=== PATIENT | female | born 1950 | race Caucasian/White ===

== ENCOUNTER 2021-07-07 00:04 | Emergency (ER) | payer MEDICAID ==
[~2021-07-07] VITALS: Ht 170.2 cm; Wt 90.9 kg
[2021-07-07] MEDS: LORazepam 1 MG TABLET PO ONE (01:12)
[2021-07-07] MEDS: HALOPERIDOL 5 MG TABLET PO ONE (01:51)
[2021-07-07 01:52] VITALS: BP 136/78
[2021-07-08] MEDS ORDERED: TRAZ-252 PO (02:36)
[2021-07-08] MEDS ORDERED: ATEN-73 PO (02:36)
[2021-07-08] MEDS ORDERED: QUET25TA PO ×2 (02:36→02:52)
[2021-07-08] MEDS ORDERED: ATEN-187 PO (02:50)
[2021-07-08] MEDS ORDERED: TRAZ-184 PO (02:51)
[2021-07-08] MEDS ORDERED: CEPH-558 PO (05:27)
== END 2021-07-07 02:34 | disposition home or self-care (01) ==
LOC: EMS 00:07
DX: F41.9 Anxiety disorder, unspecified (principal); R00.2 Palpitations; F32.9 Major depressive disorder, single episode, unspecified
CPT/HCPCS: 99283

== ENCOUNTER 2021-07-07 20:19 | Emergency (ER) | payer MEDICAID, OTHER ==
[~2021-07-07] VITALS: Ht 170.2 cm; Wt 90.9 kg
[2021-07-07 20:56] LABS: AMPHET/METH SCREEN,URINE NEGATIVE (NEGATIVE); BARBITURATE SCREEN, URINE NEGATIVE (NEGATIVE); BENZODIAZEPINES SCREEN,URINE NEGATIVE (NEGATIVE); CANNABINOID SCREEN,URINE NEGATIVE (NEGATIVE); COCAINE SCREEN,URINE NEGATIVE (NEGATIVE); METHADONE SCREEN, URINE NEGATIVE (NEGATIVE); OPIATE SCREEN,URINE NEGATIVE (NEGATIVE); PHENCYCLIDINE SCREEN,URINE NEGATIVE (NEGATIVE)
[2021-07-07 21:03] LABS: BASOPHILS % (AUTO) 0.8 % (0.0-2.0); EOSINOPHILS % (AUTO) 1.9 % (1.0-6.0); HEMATOCRIT 40.1 % (36-46); HEMOGLOBIN 13.6 g/dL (12.0-16.0); LYMPHOCYTES # (AUTO) 1.2 K/uL (1.0-4.8); LYMPHOCYTES % (AUTO) 19.8 % (22.0-44.0); MEAN CORPUSCULAR HEMOGLOBIN 29.5 pg (26.0-34.0); MEAN CORPUSCULAR VOLUME 87 fL (80-100); MONOCYTES # (AUTO) 0.6 K/uL (0.1-1.0); MONOCYTES % (AUTO) 10.2 % (2.0-9.0); NEUTROPHILS % (AUTO) 67.3 % (40.0-70.0); PLATELET COUNT (AUTO) 251 K/uL (150-450); RED BLOOD CELL COUNT(AUTO) 4.62 MIL/uL (4.00-5.20); RED CELL DISTRIBUTION WIDTH 13.7 % (11.5-14.5)
[2021-07-07 21:13] LABS: ANION GAP 12 mmol/L (8-16); CALCIUM, TOTAL 9.5 mg/dL (8.8-10.5); CARBON DIOXIDE 25 mmol/L (22-29); CHLORIDE 104 mmol/L (98-107); CREATININE 0.63 mg/dL (0.60-1.30); GLUCOSE,RANDOM 134 mg/dL (70-110); POTASSIUM 3.4 mmol/L (3.5-5.1); SODIUM SERUM 141 mmol/L (136-145); UREA NITROGEN, BLOOD 16 mg/dL (7-18)
[2021-07-07 21:14] LABS: GLOMERULAR FILTR. RATE CALC > 60 mL/min (>60)
[2021-07-07 21:19] LABS: ALANINE AMINOTRANSFERASE 53 U/L (12-78); ALBUMIN 3.9 g/dL (3.4-5.0); ALKALINE PHOSPHATASE 102 U/L (46-116); ASPARTATE AMINOTRANSFERASE 62 U/L (15-37); BILIRUBIN,TOTAL 0.6 mg/dL (0.1-1.0); TOTAL PROTEIN, SERUM 7.8 g/dL (6.4-8.2)
[2021-07-07 22:57] LABS: APPEARANCE,URINE TURBID (CLEAR); BILIRUBIN,URINE NEGATIVE (NEGATIVE); GLUCOSE, URINE (UA) 70-100 mg/dL (NEGATIVE); KETONES,URINE NEGATIVE (NEGATIVE); LEUKOCYTE ESTERASE ,URINE LARGE (NEGATIVE); NITRATE,URINE NEGATIVE (NEGATIVE); OCCULT BLOOD,URINE NEGATIVE (NEGATIVE); PH,URINE 5.5 (5.0-8.0); PROTEIN,URINE 30-70 mg/dL (NEGATIVE); SPECIFIC GRAVITIY, URINE 1.031 (1.003-1.030); UROBILINOGEN,URINE <=1.0 mg/dL (<=1.0)
[2021-07-07 23:02] LABS: AMORPHOUS SEDIMENT,UR Many /LPF (None Seen); BACTERIA,URINE Few /HPF (None Seen); RBC,URINE 0-2 /HPF (0-2); SQUAMOUS EPITHELIAL CELL,UR Rare /LPF (None Seen)
[2021-07-08] MEDS ORDERED: ATEN-73 PO (02:36)
[2021-07-08] MEDS ORDERED: QUET25TA PO ×2 (02:36→02:52)
[2021-07-08] MEDS ORDERED: TRAZ-252 PO (02:36)
[2021-07-08] MEDS ORDERED: ATEN-187 PO (02:50)
[2021-07-08] MEDS ORDERED: TRAZ-184 PO (02:51)
[2021-07-08] MEDS ORDERED: CEPH-558 PO (05:27)
[2021-07-08] MEDS ORDERED: CEPHALEXIN MONOHYDRATE 500 MG CAPSULE PO ONE (05:30)
[2021-07-08] MEDS ORDERED: QUEtiapine FUMARATE 100 MG TABLET PO ONE (07:30)
[2021-07-08 09:24] VITALS: BP 154/80
== END 2021-07-08 09:48 | disposition home or self-care (01) ==
LOC: EMS 20:26
DX: F32.9 Major depressive disorder, single episode, unspecified (principal); N39.0 Urinary tract infection, site not specified; F41.9 Anxiety disorder, unspecified; Z76.0 Encounter for issue of repeat prescription
CPT/HCPCS: 36415; 80053; 80307; 81001; 85025; 87086; 99285; G0480

== ENCOUNTER 2021-11-05 16:00 | Emergency (ER) | payer MEDICAID, OTHER ==
[~2021-11-05] VITALS: Ht 167.6 cm; Wt 78.6 kg
[~2021-11-05 16:00] MED LIST: ATEN-187 PO; ATEN-73 PO; CEPH-558 PO; QUET25TA PO; TRAZ-184 PO; TRAZ-252 PO
[2021-11-05 17:06] LABS: GLUCOMETER DEV NAME(LOC) ERT.5; GLUCOSE,POINT OF CARE 113 MG/DL (70-110)
[2021-11-05 19:01] LABS: BASOPHILS % (AUTO) 0.8 % (0.0-2.0); EOSINOPHILS % (AUTO) 0.6 % (1.0-6.0); HEMATOCRIT 42.4 % (36-46); HEMOGLOBIN 13.7 g/dL (12.0-16.0); LYMPHOCYTES # (AUTO) 1.3 K/uL (1.0-4.8); LYMPHOCYTES % (AUTO) 19.1 % (22.0-44.0); MEAN CORPUSCULAR HEMOGLOBIN 28.8 pg (26.0-34.0); MEAN CORPUSCULAR HGB CONC 32.4 G/dL (31.0-37.0); MEAN CORPUSCULAR VOLUME 89 fL (80-100); MONOCYTES # (AUTO) 0.5 K/uL (0.1-1.0); MONOCYTES % (AUTO) 7.7 % (2.0-9.0); NEUTROPHILS # (AUTO) 4.9 K/uL (1.8-7.7); NEUTROPHILS % (AUTO) 71.8 % (40.0-70.0); PLATELET COUNT (AUTO) 248 K/uL (150-450); RED BLOOD CELL COUNT(AUTO) 4.77 MIL/uL (4.00-5.20); RED CELL DISTRIBUTION WIDTH 14.2 % (11.5-14.5)
[2021-11-05 19:11] LABS: ANION GAP 11 mmol/L (8-16); CALCIUM, TOTAL 9.9 mg/dL (8.8-10.5); CARBON DIOXIDE 24 mmol/L (22-29); CHLORIDE 100 mmol/L (98-107); CREATININE 0.76 mg/dL (0.60-1.30); GLUCOSE,RANDOM 106 mg/dL (70-110); POTASSIUM 3.3 mmol/L (3.5-5.1); SODIUM SERUM 135 mmol/L (136-145); UREA NITROGEN, BLOOD 14 mg/dL (7-18)
[2021-11-05 19:12] LABS: GLOMERULAR FILTR. RATE CALC > 60 mL/min (>60)
[2021-11-05 19:17] LABS: ALANINE AMINOTRANSFERASE 25 U/L (12-78); ALBUMIN 4.7 g/dL (3.4-5.0); ALKALINE PHOSPHATASE 98 U/L (46-116); ASPARTATE AMINOTRANSFERASE 20 U/L (15-37); BILIRUBIN,TOTAL 0.7 mg/dL (0.1-1.0); LIPASE 73 U/L (73-393); TOTAL PROTEIN, SERUM 7.8 g/dL (6.4-8.2)
[2021-11-05] MEDS: SODIUM CHLORIDE 0.9% 1,000 ML IV ONE (21:00)
[2021-11-05] MEDS: ACETAMINOPHEN 500 MG TABLET PO ONE (21:01)
[2021-11-05] MEDS: ONDANSETRON HCL 4 MG/2 ML VIAL IVP ONE (21:01)
[2021-11-05] MEDS: DIPHENOXYLATE/ATROP 2.5-0.025 MG TABLET PO ONE (21:01)
[2021-11-05 22:00] VITALS: BP 135/74
[2021-11-05] MEDS: LORazepam 1 MG TABLET PO ONE (22:30)
[2021-11-05] MEDS ORDERED: ONDA-104 PO (22:31)
[2021-11-05] MEDS ORDERED: ACET-66 PO (22:31)
[2021-11-05] MEDS ORDERED: DIPH-654 PO (22:31)
== END 2021-11-06 01:03 | disposition home or self-care (01) ==
LOC: EMS 16:00
DX: K52.9 Noninfective gastroenteritis and colitis, unspecified (principal); F41.8 Other specified anxiety disorders; F32.9 Major depressive disorder, single episode, unspecified
CPT/HCPCS: 99285; 96374; 71045; 96361; 80053; 82962; 83690; 84484; 85025; 85379; 36415; 93005; J2405; J7030

== ENCOUNTER 2022-06-07 11:15 | Emergency (ER) | payer OTHER ==
[~2022-06-07] VITALS: Ht 170.2 cm; Wt 81.8 kg
[~2022-06-07 11:15] MED LIST changes: +ACET-66 PO; -ATEN-73 PO; -CEPH-558 PO; +DIPH-654 PO; +ONDA-104 PO; -TRAZ-252 PO
[2022-06-07] MEDS ORDERED: QUET50TA24 PO (11:22)
[2022-06-07] MEDS ORDERED: QUET200T30 PO (11:22)
[2022-06-07 12:20] LABS: BASOPHILS % (AUTO) 0.8 % (0.0-2.0); EOSINOPHILS % (AUTO) 0.4 % (1.0-6.0); HEMATOCRIT 43.8 % (36-46); HEMOGLOBIN 14.5 g/dL (12.0-16.0); LYMPHOCYTES # (AUTO) 0.9 K/uL (1.0-4.8); LYMPHOCYTES % (AUTO) 16.7 % (22.0-44.0); MEAN CORPUSCULAR HEMOGLOBIN 28.6 pg (26.0-34.0); MEAN CORPUSCULAR HGB CONC 33.2 G/dL (31.0-37.0); MEAN CORPUSCULAR VOLUME 86 fL (80-100); MONOCYTES # (AUTO) 0.3 K/uL (0.1-1.0); MONOCYTES % (AUTO) 5.9 % (2.0-9.0); NEUTROPHILS # (AUTO) 3.9 K/uL (1.8-7.7); NEUTROPHILS % (AUTO) 76.2 % (40.0-70.0); PLATELET COUNT (AUTO) 208 K/uL (150-450); RED BLOOD CELL COUNT(AUTO) 5.09 MIL/uL (4.00-5.20); RED CELL DISTRIBUTION WIDTH 13.9 % (11.5-14.5)
[2022-06-07 12:24] LABS: ANION GAP 10 mmol/L (8-16); CALCIUM, TOTAL 9.7 mg/dL (8.8-10.5); CARBON DIOXIDE 25 mmol/L (22-29); CHLORIDE 103 mmol/L (98-107); GLOMERULAR FILTR. RATE CALC > 60 mL/min (>60); GLUCOSE,RANDOM 123 mg/dL (70-110); POTASSIUM 3.7 mmol/L (3.5-5.1); SODIUM SERUM 138 mmol/L (136-145); UREA NITROGEN, BLOOD 12 mg/dL (7-18)
[2022-06-07 12:26] LABS: APPEARANCE,URINE CLEAR (CLEAR); BILIRUBIN,URINE NEGATIVE (NEGATIVE); GLUCOSE, URINE (UA) NEGATIVE (NEGATIVE); KETONES,URINE NEGATIVE (NEGATIVE); LEUKOCYTE ESTERASE ,URINE MODERATE (NEGATIVE); NITRATE,URINE NEGATIVE (NEGATIVE); OCCULT BLOOD,URINE NEGATIVE (NEGATIVE); PH,URINE 5.5 (5.0-8.0); PROTEIN,URINE TRACE mg/dL (NEGATIVE); UROBILINOGEN,URINE <=1.0 mg/dL (<=1.0)
[2022-06-07 12:32] LABS: ALANINE AMINOTRANSFERASE 32 U/L (12-78); ALBUMIN 4.2 g/dL (3.4-5.0); ALKALINE PHOSPHATASE 107 U/L (46-116); ASPARTATE AMINOTRANSFERASE 27 U/L (15-37); BILIRUBIN,TOTAL 0.6 mg/dL (0.1-1.0); TOTAL PROTEIN, SERUM 7.9 g/dL (6.4-8.2)
[2022-06-07 12:32] LABS: AMPHET/METH SCREEN,URINE NEGATIVE (NEGATIVE); BARBITURATE SCREEN, URINE NEGATIVE (NEGATIVE); BENZODIAZEPINES SCREEN,URINE NEGATIVE (NEGATIVE); CANNABINOID SCREEN,URINE NEGATIVE (NEGATIVE); COCAINE SCREEN,URINE NEGATIVE (NEGATIVE); METHADONE SCREEN, URINE NEGATIVE (NEGATIVE); OPIATE SCREEN,URINE NEGATIVE (NEGATIVE); PHENCYCLIDINE SCREEN,URINE NEGATIVE (NEGATIVE)
[2022-06-07 12:44] LABS: BACTERIA,URINE None Seen /HPF (None Seen); RBC,URINE None Seen /HPF (0-2); SQUAMOUS EPITHELIAL CELL,UR Few /LPF (None Seen)
[2022-06-07 12:47] LABS: COVID AG,FIA SOURCE NASAL SWAB
[2022-06-07] MEDS ORDERED: QUET50TA15 PO (13:04)
[2022-06-07] MEDS ORDERED: QUET200T5 PO (13:04)
[2022-06-07] MEDS ORDERED: QUET25TA PO (13:05)
[2022-06-07] MEDS ORDERED: CEFP200T12 PO (13:06)
[2022-06-07 13:10] VITALS: BP 146/96
== END 2022-06-07 14:00 | disposition home or self-care (01) ==
LOC: EMS 11:15
DX: F20.9 Schizophrenia, unspecified (principal); N39.0 Urinary tract infection, site not specified; F41.9 Anxiety disorder, unspecified; I10 Essential (primary) hypertension; F32.A Depression, unspecified; Z20.822 Contact with and (suspected) exposure to COVID-19
CPT/HCPCS: 99284; 87426; 80053; 85025; 36415; 87086; 87186; 81001; 80307 ×2; G0480

== ENCOUNTER 2023-04-04 10:11 | Inpatient (IN) | payer OTHER, MEDICAID ==
[~2023-04-04] VITALS: Ht 167.6 cm; Wt 85.4 kg
[~2023-04-04 10:11] MED LIST changes: -ACET-66 PO; +CEFP200T12 PO; +CEPH-558 PO; -DIPH-654 PO; +METO25 PO; +OLAN2.5T29 PO; -ONDA-104 PO; +PHEN-674 PO; +QUET100T34 PO; +QUET200T30 PO; +QUET200T5 PO; +QUET25TA36 PO; +QUET50TA24 PO; +TRAZ-252 PO
[2023-04-04 11:17] LABS: BASOPHILS % (AUTO) 0.7 % (0.0-2.0); EOSINOPHILS % (AUTO) 0.7 % (1.0-6.0); HEMOGLOBIN 15.6 g/dL (12.0-16.0); LYMPHOCYTES # (AUTO) 1.5 K/uL (1.0-4.8); LYMPHOCYTES % (AUTO) 19.3 % (22.0-44.0); MEAN CORPUSCULAR HEMOGLOBIN 29.6 pg (26.0-34.0); MEAN CORPUSCULAR VOLUME 87 fL (80-100); MONOCYTES # (AUTO) 0.7 K/uL (0.1-1.0); MONOCYTES % (AUTO) 8.4 % (2.0-9.0); NEUTROPHILS # (AUTO) 5.6 K/uL (1.8-7.7); NEUTROPHILS % (AUTO) 70.9 % (40.0-70.0); PLATELET COUNT (AUTO) 212 K/uL (150-450); RED BLOOD CELL COUNT(AUTO) 5.27 MIL/uL (4.00-5.20); RED CELL DISTRIBUTION WIDTH 14.3 % (11.5-14.5); WHITE BLOOD COUNT (AUTO) 7.9 K/uL (4.5-11.0)
[2023-04-04] MEDS ORDERED: OLANZapine 5 MG RAPDIS TABLET PO PRN (11:30)
[2023-04-04] MEDS ORDERED: LORazepam 2 MG TABLET PO PRN (11:30)
[2023-04-04 11:37] LABS: ANION GAP 14 mmol/L (8-16); CALCIUM, TOTAL 10.1 mg/dL (8.8-10.5); CARBON DIOXIDE 25 mmol/L (22-29); CHLORIDE 99 mmol/L (98-107); CREATININE 0.74 mg/dL (0.60-1.30); GLOMERULAR FILTR. RATE CALC > 60 mL/min (>60); GLUCOSE,RANDOM 125 mg/dL (70-110); POTASSIUM 3.8 mmol/L (3.5-5.1); SODIUM SERUM 138 mmol/L (136-145); UREA NITROGEN, BLOOD 22 mg/dL (7-18)
[2023-04-04 11:47] LABS: ALANINE AMINOTRANSFERASE 34 U/L (12-78); ALBUMIN 4.4 g/dL (3.4-5.0); ALKALINE PHOSPHATASE 91 U/L (46-116); ASPARTATE AMINOTRANSFERASE 29 U/L (15-37); BILIRUBIN,TOTAL 0.8 mg/dL (0.1-1.0); TOTAL PROTEIN, SERUM 7.8 g/dL (6.4-8.2)
[2023-04-04] MEDS: QUEtiapine FUMARATE 100 MG TABLET PO ONE (11:47)
[2023-04-04 11:48] LABS: COVID AG,FIA SOURCE NASAL SWAB
[2023-04-04 11:49] LABS: ALCOHOL, BLOOD (SERUM) < 3 mg/dL (0-10)
[2023-04-04 12:27] LABS: SARS-COV2 (COVID) ANTIGEN,FIA Negative (Negative)
[2023-04-04] MEDS ORDERED: LOPERAMIDE HCL 2 MG CAPSULE PO PRN (22:00)
[2023-04-04] MEDS ORDERED: QUEtiapine FUMARATE 100 MG TABLET PO PRN (22:00)
[2023-04-04] MEDS ORDERED: TUBERCULIN, PURIFIED PROTEIN DERIVATIVE 5 TU/0.1 ML SYRINGE ID ONE (22:00)
[2023-04-04] MEDS ORDERED: GuaiFENesin/D-METHORPHAN [SUGAR-FREE] 200-20MG/10 ML SYRUP UDCUP PO PRN (22:00)
[2023-04-04] MEDS ORDERED: MAG HYDROX/ALUMINUM HYD/SIMETH ES 30 ML SUSPENSION UDCUP PO PRN (22:00)
[2023-04-04] MEDS ORDERED: ACETAMINOPHEN 325 MG TABLET PO PRN (22:00)
[2023-04-04] MEDS ORDERED: HydrOXYzine PAMOATE 50 MG CAPSULE PO PRN (22:00)
[2023-04-04] MEDS ORDERED: MAGNESIUM HYDROXIDE SUSPENSION 30 ML UDCUP PO PRN (22:00)
[2023-04-04] MEDS: ZOLPIDEM TARTRATE 10 MG TABLET PO PRN (23:16)
[2023-04-05 01:01] VITALS: BP 155/75; PULSE 122; RESP 18; TEMP 97
[2023-04-05] MEDS ORDERED: INFLUENZA VIRUS VACCINE QVS 2023-24 (6MO+)/PF 60 MCG/0.5 ML SYRINGE IM. ONE (05:00)
[2023-04-05 06:45] LABS: APPEARANCE,URINE HAZY (CLEAR); BILIRUBIN,URINE NEGATIVE (NEGATIVE); COLOR,URINE YELLOW (YELLOW); GLUCOSE, URINE (UA) NEGATIVE (NEGATIVE); LEUKOCYTE ESTERASE ,URINE LARGE (NEGATIVE); NITRATE,URINE NEGATIVE (NEGATIVE); OCCULT BLOOD,URINE NEGATIVE (NEGATIVE); PH,URINE 5.5 (5.0-8.0); PH,URINE DRUG SCREEN 5.5 (5.0-8.0); PROTEIN,URINE TRACE mg/dL (NEGATIVE); SPECIFIC GRAVITIY, URINE 1.034 (1.003-1.030); UROBILINOGEN,URINE <=1.0 mg/dL (<=1.0)
[2023-04-05 06:50] LABS: ALCOHOL, URINE DRUG SCREEN NEGATIVE (NEGATIVE); AMPHET/METH SCREEN,URINE NEGATIVE (NEGATIVE); BARBITURATE SCREEN, URINE NEGATIVE (NEGATIVE); BENZODIAZEPINES SCREEN,URINE NEGATIVE (NEGATIVE); CANNABINOID SCREEN,URINE NEGATIVE (NEGATIVE); COCAINE SCREEN,URINE NEGATIVE (NEGATIVE); METHADONE SCREEN, URINE NEGATIVE (NEGATIVE); OPIATE SCREEN,URINE NEGATIVE (NEGATIVE); PHENCYCLIDINE SCREEN,URINE NEGATIVE (NEGATIVE)
[2023-04-05 07:06] LABS: RBC,URINE 0-2 /HPF (0-2)
[2023-04-05 07:11] LABS: BACTERIA,URINE Moderate /HPF (None Seen)
[2023-04-05 07:12] LABS: SQUAMOUS EPITHELIAL CELL,UR Few /LPF (None Seen)
[2023-04-05 08:28] LABS: HEMOGLOBIN A1C 5.6 % (3.8-5.6)
[2023-04-05 08:49] LABS: CHOL/HDL RATIO 6.3 (3.9-5.7); FREE T4 (FREE THYROXINE) 1.04 ng/dL (0.76-1.46); THYROID STIMULATING HORMONE 0.8 uIU/mL (0.36-3.74)
[2023-04-05 09:55] VITALS: BP 138/77; PULSE 98; RESP 18; TEMP 97
[2023-04-05] MEDS: MULTIVITAMINS WITH MINERALS, THERAPEUTIC TABLET PO SCH (11:07)
[2023-04-05] MEDS: THIAMINE 100 MG TABLET PO SCH (11:07)
[2023-04-05] MEDS: NALTREXONE HCL 50 MG TABLET PO SCH (11:07)
[2023-04-05] MEDS: FOLIC ACID 1 MG TABLET PO SCH (11:07)
[2023-04-05] MEDS: OMEGA-3/DHA/EPA/FISH OIL 1,000 MG CAPSULE PO SCH (11:07)
[2023-04-05] MEDS: NITROFURANTOIN MONOHYD/M-CRYST 100 MG CAPSULE [MACROBID] PO SCH (16:21)
[2023-04-05] MEDS: OLANZapine 5 MG RAPDIS TABLET PO SCH (20:01)
[2023-04-05] MEDS: MELATONIN 5 MG TABLET PO SCH (20:01)
[2023-04-05] MEDS: TraZODone HCL 50 MG TABLET PO SCH (20:01)
[2023-04-05] MEDS ORDERED: QUEtiapine FUMARATE 200 MG TABLET PO SCH (21:00)
[2023-04-05 21:31] VITALS: BP 149/62; PULSE 93; RESP 18; TEMP 97.4
[2023-04-06 10:40] VITALS: BP 143/86; PULSE 99; RESP 17; TEMP 96.8
[2023-04-06] MEDS: METOPROLOL TARTRATE 25 MG TABLET PO SCH (10:41)
[2023-04-07 02:11] VITALS: BP 133/75; PULSE 71; RESP 18; TEMP 97
[2023-04-07 09:34] VITALS: BP 140/80; PULSE 74; RESP 18; TEMP 97.5
[2023-04-07] MEDS ORDERED: OLAN5TAB94 PO (15:57)
[2023-04-07] MEDS ORDERED: NALT50TA33 PO (15:57)
[2023-04-07] MEDS ORDERED: MELA5TAB40 PO (15:57)
[2023-04-07] MEDS ORDERED: OMEG-135 PO (15:57)
[2023-04-07] MEDS ORDERED: TRAZ-252 PO (15:57)
[2023-04-07 21:11] VITALS: BP 135/76; PULSE 71; RESP 18; TEMP 97.5
[2023-04-08 08:00] VITALS: RESP 18
[2023-04-08 22:54] VITALS: BP 151/81; PULSE 79; RESP 18; TEMP 97.4
[2023-04-09 09:09] VITALS: BP 147/84; PULSE 89; RESP 18; TEMP 96.8
[2023-04-09] MEDS: OLANZapine 5 MG RAPDIS TABLET PO PRN (10:57)
== END 2023-04-09 11:35 | disposition home or self-care (01) | DRG 885 ==
LOC: EMS 10:11 → 3EI 21:09
PROVIDERS: ADMIT Psychiatry & Neurology Psychiatry; ATTEND Psychiatry & Neurology Psychiatry
PROC: GZHZZZZ Group Psychotherapy (ICD-10-PCS; principal; 2023-04-04)
PROC: GZ51ZZZ Individual Psychotherapy, Behavioral (ICD-10-PCS; 2023-04-04)
DX: F25.0 Schizoaffective disorder, bipolar type (principal); N39.0 Urinary tract infection, site not specified; R45.851 Suicidal ideations; Z20.822 Contact with and (suspected) exposure to COVID-19; I10 Essential (primary) hypertension; J44.9 Chronic obstructive pulmonary disease, unspecified; F03.90 Unspecified dementia, unspecified severity, without behavioral disturbance, psychotic disturbance, mood disturbance, and anxiety; F41.9 Anxiety disorder, unspecified; G89.29 Other chronic pain; F17.210 Nicotine dependence, cigarettes, uncomplicated; M54.9 Dorsalgia, unspecified; G47.00 Insomnia, unspecified; E78.5 Hyperlipidemia, unspecified; Z91.148 Patient's other noncompliance with medication regimen for other reason; Z91.199 Patient's noncompliance with other medical treatment and regimen due to unspecified reason; Z88.8 Allergy status to other drugs, medicaments and biological substances; Z98.891 History of uterine scar from previous surgery
CPT/HCPCS: 80053; 80061; 80307; 81001; 83036; 84439; 84443; 85025; 87086; 87186; 99285; G0480; Q9967